=== PATIENT | female | born 1995 | race African-American/Black ===

== ENCOUNTER 2017-12-20 18:15 | Observation (INO) | payer OTHER ==
[~2017-12-20] VITALS: Ht 165.1 cm; Wt 65.8 kg
[2017-12-20] MEDS ORDERED: TERBUTALINE SULFATE 1 MG/ML 1ML VIAL SC SCH (18:30)
[2017-12-20] MEDS ORDERED: PREN-96 PO (21:19)
== END 2017-12-20 20:14 | disposition home or self-care (01) | DRG 782 ==
LOC: LDRP 18:15
PROVIDERS: ADMIT Obstetrics & Gynecology; ATTEND Obstetrics & Gynecology
DX: O26.853 Spotting complicating pregnancy, third trimester (principal); Z3A.28 28 weeks gestation of pregnancy
CPT/HCPCS: 59025; 76805; 81002; G0378